=== PATIENT | female | born 2000 | race Two or more races ===

== ENCOUNTER → 2023-07-14 | Outpatient (CLI) | payer OTHER ==
[2023-07-14 13:34] LABS: HIV 1&2 SCREEN NEGATIVE (NEGATIVE)
[2023-07-14 13:42] LABS: HEPATITIS B CORE ANTIBODY IGM NEGATIVE (NEGATIVE); HEPATITIS C VIRUS ABY INDEX < 0.02 INDEX (<0.8)
[2023-07-14 16:42] LABS: Trichomonas vaginalis (AMP) NOT DETECTED (NEGATIVE)
[2023-07-14 17:06] LABS: GC DNA AMPLIFICATION NEGATIVE (NEGATIVE)
== END ==
LOC: M PLALAB 11:22
PROVIDERS: ATTEND Nurse Practitioner Family
DX: Z11.3 Encounter for screening for infections with a predominantly sexual mode of transmission (principal); Z12.4 Encounter for screening for malignant neoplasm of cervix

== ENCOUNTER → 2023-08-17 | Outpatient (REF) | payer OTHER | LOC: M SFHCWAGY 15:10 | PROVIDERS: ATTEND Nurse Practitioner Family | DX: L91.8 Other hypertrophic disorders of the skin (principal) ==

== ENCOUNTER 2024-04-17 20:33 | Emergency (ER) | payer BC, SELFPAY ==
[~2024-04-17] VITALS: Ht 165.1 cm; Wt 89.0 kg
[2024-04-17 21:32] LABS: KETONE, URINE AUTO RFX NEGATIVE (NEGATIVE); LEUKOCYTE ESTERASE UR AUTO RFX NEGATIVE (NEGATIVE); MUCUS, URINE RFX SMALL (NEGATIVE); NITRITE, URINE AUTO RFX NEGATIVE (NEGATIVE); RBC, URINE AUTO RFX 1 /HPF (0-3); SQUAM EPITHELIAL CELL UR AURFX 2 /HPF (0-6); WBC, URINE AUTO RFX 1 /HPF (0-3)
[2024-04-17 21:52] LABS: BASO # 0.1 10^3/uL (0.0-0.2); BASO % 1.1 % (0.0-1.0); EOS # 1.1 10^3/uL (0.0-0.5); EOS % 11.1 % (0.0-3.0); HEMATOCRIT 42.9 % (36.0-47.0); HEMOGLOBIN 14.6 g/dl (12.0-15.5); LYMPH # 3.5 10^3/uL (1.5-5.0); LYMPH % 35.6 % (24.0-44.0); MEAN CORPUSCULAR VOLUME 85.3 fl (80.0-96.0); MONO # 0.7 10^3/uL (0.0-0.8); MONO % 6.6 % (2.0-8.0); NEUTROPHILS # 4.4 10^3/uL (1.5-8.5); NEUTROPHILS % 45.3 % (36.0-66.0); PLATELET COUNT, AUTOMATED 389 10^3/uL (150-450); RED BLOOD COUNT 5.03 10^6/uL (4.00-5.40); WHITE BLOOD COUNT 9.8 10^3/uL (4.0-10.0)
[2024-04-17 22:13] LABS: LIPASE 44 U/L (12-53)
[2024-04-17 22:14] LABS: HCG, SERUM QUALITATIVE NEGATIVE (NEGATIVE)
[2024-04-17 22:15] LABS: ALBUMIN 3.6 G/DL (3.2-5.2); ALKALINE PHOSPHATASE 76 U/L (35-104); ALT/SGPT 22 U/L (7.0-40); AST/SGOT 21 U/L (<34); BILIRUBIN,DIRECT < 0.1 MG/DL (<0.4); BILIRUBIN,TOTAL 0.4 MG/DL (0.3-1.2); BLOOD UREA NITROGEN 15 MG/DL (9-23); CALCIUM LEVEL 8.9 MG/DL (8.5-10.1); CARBON DIOXIDE LEVEL 27 MMOL/L (20-31); CHLORIDE LEVEL 106 MMOL/L (98-107); CREATININE FOR GFR 0.73 MG/DL (0.55-1.30); GLOMERULAR FILTRATION RATE > 60.0 (>60); GLUCOSE, FASTING 87 MG/DL (60-100); POTASSIUM SERUM 4.2 MMOL/L (3.5-5.1); SODIUM LEVEL 141 MMOL/L (136-145); TOTAL PROTEIN 6.6 G/DL (5.7-8.2)
[2024-04-18] MEDS: ONDANSETRON 4MG ORAL DISINTEGRATING TAB PO ONE (02:21)
[2024-04-18] MEDS: KETOROLAC 30 MG/ML 1ML VIAL IV ONE (02:51)
[2024-04-18] MEDS ORDERED: ISOVUE-370 76% 100ML VIAL As Ordered ONE (03:56)
[2024-04-18 06:21] VITALS: BP 121/78; TEMP 97; O2SAT 96
== END 2024-04-18 06:25 | disposition home or self-care (01) ==
LOC: M ED 20:33
DX: R10.31 Right lower quadrant pain (principal); Z88.1 Allergy status to other antibiotic agents; Z88.8 Allergy status to other drugs, medicaments and biological substances; G89.29 Other chronic pain; M54.9 Dorsalgia, unspecified
CPT/HCPCS: 74177; 76705; 76830; 76856; 80048; 80076; 81001; 83690; 84703; 85025; 87486; 87581; 87633; 87798; 93976; 96374; 99284; J1885; Q9967

== ENCOUNTER 2025-01-19 22:44 | Emergency (ER) | payer BC ==
[~2025-01-19] VITALS: Ht 162.6 cm; Wt 77.3 kg
[2025-01-19] MEDS ORDERED: LEVO-53 PO (23:01)
[2025-01-19] MEDS ORDERED: CETI-24 PO (23:01)
[2025-01-19] MEDS ORDERED: ALBU8.5H INH (23:01)
[2025-01-19] MEDS ORDERED: ERGO500029 SQ (23:01)
[2025-01-19] MEDS: NS (Normal Saline) 0.9% 1,000 ML IV ONE (23:26)
[2025-01-19] MEDS: FAMOTIDINE 20 MG TAB PO ONE (23:26)
[2025-01-20] MEDS ORDERED: FAMO20TA PO (03:41)
[2025-01-20] MEDS ORDERED: BENA25CA4 PO (03:41)
[2025-01-20 03:45] VITALS: BP 129/80; TEMP 97.3; O2SAT 98
== END 2025-01-20 03:55 | disposition home or self-care (01) ==
LOC: EDBD 22:44 → M ED 22:44
DX: T78.40XA Allergy, unspecified, initial encounter (principal); D68.00 Von Willebrand disease, unspecified; Z88.1 Allergy status to other antibiotic agents; Z88.8 Allergy status to other drugs, medicaments and biological substances; Z79.52 Long term (current) use of systemic steroids; Z79.899 Other long term (current) drug therapy

== ENCOUNTER → 2025-02-20 | Outpatient (REF) | payer BC ==
[~2025-02-20] MED LIST: ALBU8.5H INH; BENA25CA4 PO; CETI-24 PO; ERGO500029 SQ; FAMO20TA PO; LEVO-53 PO
[2025-02-20 17:48] LABS: BASO # 0.1 10^3/uL (0.0-0.2); BASO % 0.8 % (0.0-1.0); EOS # 0.2 10^3/uL (0.0-0.5); EOS % 3.5 % (0.0-3.0); LYMPH # 2.2 10^3/uL (1.5-5.0); LYMPH % 35.3 % (24.0-44.0); MONO # 0.6 10^3/uL (0.0-0.8); MONO % 9.0 % (2.0-8.0); NEUTROPHILS # 3.2 10^3/uL (1.5-8.5); NEUTROPHILS % 51.2 % (36.0-66.0); PLATELET COUNT, AUTOMATED 434 10^3/uL (150-450)
[2025-02-20 17:52] LABS: ALT/SGPT 36 U/L (7.0-40); AST/SGOT 30 U/L (<34); CALCIUM LEVEL 9.5 MG/DL (8.5-10.1); CARBON DIOXIDE LEVEL 27 MMOL/L (20-31); CHLORIDE LEVEL 102 MMOL/L (98-107); CREATININE FOR GFR 0.71 MG/DL (0.55-1.30); FREE T4 1.46 NG/DL (0.89-1.76); GLOMERULAR FILTRATION RATE > 90.0 (>60); IRON (FE) 118 UG/DL (50-170); PERCENT SATURATION 28.4 % (13.2-45.0); POTASSIUM SERUM 4.5 MMOL/L (3.5-5.1); SODIUM LEVEL 138 MMOL/L (136-145)
[2025-02-20 17:53] LABS: TOTAL 25(OH) VITAMIN D 34.5 NG/ML (20.0-100.0)
[2025-02-20 17:54] LABS: VITAMIN B12 LEVEL 506 PG/ML (211-911)
[2025-02-20 19:00] LABS: ESTIMATED AVERAGE GLUCOSE 91.0 MG/DL (60-110)
== END ==
LOC: M SFHCCAPE 09:12
PROVIDERS: ATTEND Physician Assistant Medical
DX: D50.9 Iron deficiency anemia, unspecified (principal); Z83.3 Family history of diabetes mellitus; E55.9 Vitamin D deficiency, unspecified; L50.1 Idiopathic urticaria; Z87.892 Personal history of anaphylaxis